=== PATIENT | male | born 1960 | race African-American/Black ===

== ENCOUNTER 2022-11-12 11:39 | Observation (INO) ==
[2022-11-12 12:24] LABS: Basophils # 0.1 10*3/uL (0.0-0.2); Basophils % 1.6 % (0.0-0.8); Eosinophils # 0.2 10*3/uL (0.0-0.87); Eosinophils % 3.8 % (0.00-10.9); Hemoglobin 11.9 GM/DL (14.0-18.0); Immature Granulocytes % 0.2 %; Immature Granulocytes Absolute 0.01 #; Lymphocytes # 1.6 10*3/uL (1.4-4.0); Lymphocytes % 35.7 % (21.2-54.2); Mean Corpuscular HGB Conc 32.2 GM/DL (32-36); Mean Corpuscular Volume 85.8 FL (87-102); Mean Platelet Volume 10.6 FL (9.6-12.0); Monocytes # 0.6 10*3/uL (0.11-0.8); Monocytes % 13.4 % (1.7-12.7); Neutrophils % 45.3 % (38.7-73.9); Platelet Count 329 T/CUMM (130-400); Red Blood Count 4.31 MC/CUMM (3.8-5.5); Red Cell Distribution Width 12.8 % (9.3-17.3); White Blood Count 4.48 T/CUMM (4-12)
[2022-11-12 12:47] LABS: Calcium 9.4 MG/DL (8.5-10.1); Osmolality,Calculated 283.7 MOS/KG (273-304); Potassium 4.6 MMOL/L (3.5-5.1)
[2022-11-12] MEDS ORDERED: SODIUM CHLORIDE 0.9% 1,000 ML IV STA (13:49)
[2022-11-12 14:10] LABS: PT Patient Result 10.8 SECS (10.1-12.1)
[2022-11-12] MEDS ORDERED: ASPIRIN 325 MG TABLET PO STA (14:41)
[2022-11-12] MEDS ORDERED: ACETAMINOPHEN 325 MG TABLET PO PRN (14:44)
[2022-11-12] MEDS ORDERED: PROMETHAZINE 25 MG/1 ML VIAL IM PRN (14:44)
[2022-11-12] MEDS ORDERED: ONDANSETRON 4 MG/2 ML VIAL IV PRN (14:44)
[2022-11-12] MEDS ORDERED: ENOXAPARIN 40 MG/0.4 ML SYRINGE SUBCUT SCH (15:00)
[2022-11-12] MEDS: SODIUM CHLORIDE 0.9% 1,000 ML IV SCH (15:50)
[2022-11-12 16:32] LABS: Barbiturates Screen,Urine Negative (Negative); Benzodiazepines Screen,Urine Negative (Negative); Cannabinoid Screen,Urine Negative (Negative); Opiate Screen,Urine Negative (Negative); Phencyclidine Screen,Urine Negative (Negative)
[2022-11-12] MEDS: DOCUSATE SODIUM 100 MG CAPSULE PO SCH (22:11)
[2022-11-13 05:15] LABS: Basophils # 0.1 10*3/uL (0.0-0.2); Basophils % 1.5 % (0.0-0.8); Eosinophils # 0.3 10*3/uL (0.0-0.87); Eosinophils % 6.1 % (0.00-10.9); Hematocrit 33.6 VOL% (42.0-52.0); Hemoglobin 10.8 GM/DL (14.0-18.0); Lymphocytes # 1.9 10*3/uL (1.4-4.0); Mean Corpuscular HGB Conc 32.1 GM/DL (32-36); Mean Corpuscular Volume 87.3 FL (87-102); Mean Platelet Volume 10.6 FL (9.6-12.0); Monocytes # 0.7 10*3/uL (0.11-0.8); Monocytes % 14.4 % (1.7-12.7); Platelet Count 286 T/CUMM (130-400); Red Blood Count 3.85 MC/CUMM (3.8-5.5); Red Cell Distribution Width 12.9 % (9.3-17.3); White Blood Count 4.58 T/CUMM (4-12)
[2022-11-13 05:39] LABS: Eosinophils 8 % (0-10); Hypochromia Slight; Lymphocytes 49 % (20-55); Microcytosis Slight; Platelet Estimate Adequate; Total Cells Counted 100
[2022-11-13 05:50] LABS: Albumin 3.2 G/DL (3.4-5.0); Calcium 8.7 MG/DL (8.5-10.1); Osmolality,Calculated 288.3 MOS/KG (273-304); Potassium 4.3 MMOL/L (3.5-5.1); Total Protein 7.1 G/DL (6.4-8.2)
[2022-11-13] MEDS: SODIUM CHLORIDE 0.9% 1,000 ML IV SCH ×2 (06:53→06:56)
[2022-11-13] MEDS: PANTOPRAZOLE 40 MG TABLET PO SCH ×2 (09:07→11:08)
[2022-11-13] MEDS: DOCUSATE SODIUM 100 MG CAPSULE PO SCH ×2 (09:07→11:07)
[2022-11-13 11:17] VITALS: BP 157/87
== END 2022-11-13 13:58 | disposition home or self-care (01) ==
LOC: N.ED 11:39 → N.EDINP 11:39 → N.2W 16:44
PROVIDERS: ADMIT Family Medicine; ATTEND Family Medicine